=== PATIENT | male | born 1995 | race Caucasian/White ===

== ENCOUNTER 2017-03-19 09:07 | Emergency (ER) | payer SELFPAY ==
[2017-03-19] MEDS ORDERED: Ondansetron 4 MG/2 ML SDV IVPUSH ONE (09:23)
[2017-03-19] MEDS ORDERED: Ketorolac 30 MG/ML SDV IVPUSH ONE (09:23)
[2017-03-19] MEDS ORDERED: Sodium Chloride 0.9% 1,000 ML IV ONE (09:23)
--- NOTE | 2017-03-19 09:24 | EDM.PDOC ---
ED HPI GENERAL MEDICAL PROBLEM - General Chief Complaint: Abdominal Pain Stated Complaint: ABDOMINAL PAIN Time Seen by Provider: 03/19/17 09:24 Source of Information: Reports: Patient - History of Present Illness INITIAL COMMENTS - FREE TEXT/NARRATIVE: HISTORY AND PHYSICAL: History of present illness: [Patient presents with abdominal pain 2 out of 10 in the epigastric area as well as left lower quadrant, he awoke for work at 6 AM and has had pain since his last bowel movement was 24 hours ago normal formed stool per patient no diarrhea or constipation. Patient did vomit twice since awakening no fever chills sweats chest pain shortness breath headache dizziness or palpitation no bowel or urine symptoms Diagnosed with gastric ulcer several years ago ] Review of systems: As per history of present illness and below otherwise all systems reviewed and negative. Past medical history: As per history of present illness and as reviewed below otherwise noncontributory. Surgical history: As per history of present illness and as reviewed below otherwise noncontributory. Social history: No reported history of drug or alcohol abuse. Family history: As per history of present illness and as reviewed below otherwise noncontributory. Physical exam: HEENT: Atraumatic, normocephalic, pupils reactive, negative for conjunctival pallor or scleral icterus, mucous membranes moist, throat clear, neck supple, nontender, trachea midline. Lungs: Clear to auscultation, breath sounds equal bilaterally, chest nontender. Heart: S1S2, regular, negative for clicks, rubs, or JVD. Abdomen: Soft, nondistended, nontender in right lower or upper quadrant left lower quadrant mildly tender with deep palpation as well as and epigastrium. Negative for masses or hepatosplenomegaly. Negative for costovertebral tenderness. Pelvis: Stable nontender. Genitourinary: Deferred. Rectal: Deferred. Extremities: Atraumatic, negative for cords or calf pain. Neurovascular unremarkable. Neuro: Awake, alert, oriented. Cranial nerves II through XII unremarkable. Cerebellum unremarkable. Motor and sensory unremarkable throughout. Exam nonfocal. Diagnostics: []Lab as below Abdomen flat and upright nonobstructive pattern moderate amount of stool Guaiac-negative Therapeutics: []1 L normal saline bolus Zofran 8 mg IV Toradol 30 mg IV Protonix 80 mg IV Tramadol 50 mg by mouth 3 times a day when necessary #30 Reglan MiraLAX Otherwise clear liquids 24 hours Impression: []Abdominal pain Guaiac-negative Moderate stool Definitive disposition and diagnosis as appropriate pending reevaluation and review of above. Abdominal Pain Score (Numeric/FACES): 7 - Related Data Allergies Allergy/AdvReac Type Severity Reaction Status Date / Time No Known Allergies Allergy Verified 03/19/17 09:15 Home Meds: Home Meds . [No Known Home Meds] 03/19/17 [History] Past Medical History - Past Health History Medical/Surgical History: Denies Medical/Surgical History Social & Family History - Tobacco Use Smoking Status *Q: Current Every Day Smoker Years of Tobacco use: 10 Packs/Tins Daily: 0.5 ED ROS GENERAL - Review of Systems Review Of Systems: ROS reveals no pertinent complaints other than HPI. ED EXAM, GENERAL - Physical Exam Exam: See Below Course - Vital Signs Last Recorded V/S: Last Vital Signs Temp 36.2 C 03/19/17 09:15 Pulse 98 03/19/17 09:15 Resp 18 03/19/17 09:15 BP 124/64 03/19/17 09:15 Pulse Ox 97 03/19/17 09:15 - Orders/Labs/Meds Orders: Active Orders 24 hr Category Date Time Status Abdomen 2V AP Flat Upright [CR] Stat Exams 03/19/17 10:02 Ordered OCCULT BLOOD DIAGNOSTIC [OP] Stat Lab 03/19/17 10:50 Ordered Labs: Laboratory Tests 03/19/17 03/19/17 03/19/17 Range/Units 09:20 09:20 09:24 WBC 7.51 (4.0-11.0) K/uL RBC 5.35 (4.50-5.90) M/uL Hgb 16.4 (13.0-17.0) g/dL Hct 47.3 (38.0-50.0) % MCV 88.4 (80.0-98.0) fL MCH 30.7 (27.0-32.0) pg MCHC 34.7 (31.0-37.0) g/dL RDW Std Deviation 42.5 (28.0-62.0) fl RDW Coeff of Susan 13 (11.0-15.0) % Plt Count 264 (150-400) K/uL MPV 10.40 (7.40-12.00) fL Neut % (Auto) 51.2 (48.0-80.0) % Lymph % (Auto) 40.3 H (16.0-40.0) % [place] % (Auto) 5.9 (0.0-15.0) % Eos % (Auto) 2.3 (0.0-7.0) % Baso % (Auto) 0.3 (0.0-1.5) % Neut # (Auto) 3.9 (1.4-5.7) K/uL Lymph # (Auto) 3.0 H (0.6-2.4) K/uL [place] # (Auto) 0.4 (0.0-0.8) K/uL Eos # (Auto) 0.2 (0.0-0.7) K/uL Baso # (Auto) 0.0 (0.0-0.1) K/uL Nucleated RBC % 0.0 /100WBC Nucleated RBCs # 0 K/uL Sodium 139 (136-146) mmol/L Potassium 3.9 (3.5-5.1) mmol/L Chloride 104 (98-110) mmol/L Carbon Dioxide 25 (21-31) mmol/L BUN 16 (6.0-23.0) mg/dL Creatinine 0.9 (0.6-1.5) mg/dL Est Cr Clr Drug Dosing 119.35 mL/min Estimated GFR (MDRD) > 60.0 ml/min Glucose 101 (60-110) mg/dL Calcium 9.7 (8.8-10.8) mg/dL Total Bilirubin 0.6 (0.1-1.5) mg/dL AST 23 (5-40) IU/L ALT 22 (8-54) IU/L Alkaline Phosphatase 92 (40-150) Total Protein 7.7 (6.0-8.0) g/dL Albumin 4.7 (3.5-5.0) g/dL Globulin 3.0 (2.0-3.5) g/dL Albumin/Globulin Ratio 1.6 (1.3-2.8) Amylase 46 (10-90) U/L Lipase 14 (7-80) U/L Urine Color YELLOW Urine Appearance CLEAR Urine pH 7.0 (5.0-8.0) Ur Specific [place] 1.015 (1.001-1.035) Urine Protein NEGATIVE (NEGATIVE) mg/dL Urine Glucose (UA) NEGATIVE (NEGATIVE) mg/dL Urine Ketones NEGATIVE (NEGATIVE) mg/dL Urine Occult Blood NEGATIVE (NEGATIVE) Urine Nitrite NEGATIVE (NEGATIVE) Urine Bilirubin NEGATIVE (NEGATIVE) Urine Urobilinogen 0.2 (<2.0) EU/dL Ur Leukocyte Esterase NEGATIVE (NEGATIVE) Urine RBC 0-1 (0-2/HPF) Urine WBC 0-1 (0-5/HPF) Ur Epithelial Cells RARE (NONE-FEW) Urine Bacteria RARE (NEGATIVE) Meds: Medications Discontinued Medications Generic Name Dose Route Start Last Admin Trade Name Freq PRN Reason Stop Dose Admin Sodium Chloride 1,000 mls @ 999 mls/hr 03/19/17 09:23 03/19/17 09:47 Normal Saline IV 03/19/17 10:23 999 mls/hr STAT ONE Administration Ketorolac Tromethamine 30 mg 03/19/17 09:23 03/19/17 09:47 Toradol IVPUSH 03/19/17 09:24 30 mg ONETIME ONE Administration Ondansetron HCl 8 mg 03/19/17 09:23 03/19/17 09:47 Zofran IVPUSH 03/19/17 09:24 8 mg ONETIME ONE Administration Pantoprazole Sodium 80 mg 03/19/17 10:00 03/19/17 10:21 Protonix Iv IVPUSH 03/19/17 10:01 80 mg .BOLUS ONE Administration Departure - Departure Time of Disposition: 10:56 Disposition: Home, Self-Care 01 Condition: Good Clinical Impression: Gastroenteritis, Abdominal pain - Discharge Information Referrals: PCP,None [Primary Care Provider] - Forms: ED Department Discharge Additional Instructions: Medication as prescribed Recommend MiraLAX 1 packet daily until bowel movement Return if symptoms persist or worsen or new concerning symptoms develop, due to the early nature of presentation and symptoms other diagnoses could develop with time so strongly encouraged to return if symptoms persist or worsen Recommend clear liquids outside of the MiraLAX for 24 hours with no solid food Follow-up with primary care in 2 weeks sooner as needed [facility] [address] [place] [id number] The following information is given to patients seen in the emergency department who are being discharged to home. This information is to outline your options for follow-up care. We provide all patients seen in our emergency department with a follow-up referral. The need for follow-up, as well as the timing and circumstances, are variable depending upon the specifics of your emergency department visit. If you don't have a primary care physician on staff, we will provide you with a referral. We always advise you to contact your personal physician following an emergency department visit to inform them of the circumstance of the visit and for follow-up with them and/or the need for any referrals to a consulting specialist. The emergency department will also refer you to a specialist when appropriate. This referral assures that you have the opportunity for follow-up care with a specialist. All of these measure are taken in an effort to provide you with optimal care, which includes your follow-up. Under all circumstances we always encourage you to contact your private physician who remains a resource for coordinating your care. When calling for follow-up care, please make the office aware that this follow-up is from your recent emergency room visit. If for any reason you are refused follow-up, please contact the [facility] emergency department at and asked to speak to the emergency department charge nurse. - My Orders Last 24 Hours: My Active Orders 03/19/17 10:02 Abdomen 2V AP Flat Upright [CR] Stat 03/19/17 10:50 OCCULT BLOOD DIAGNOSTIC [OP] Stat - Assessment/Plan Last 24 Hours: My Active Orders 03/19/17 10:02 Abdomen 2V AP Flat Upright [CR] Stat 03/19/17 10:50 OCCULT BLOOD DIAGNOSTIC [OP] Stat
[2017-03-19 09:55] LABS: CHLORIDE,CL 104 mmol/L (98-110); SODIUM,NA 139 mmol/L (136-146)
[2017-03-19] MEDS ORDERED: Pantoprazole 40 MG Vial IVPUSH ONE (10:00)
--- NOTE | 2017-03-19 11:51 | CR ---
EXAMINATION: Abdomen HISTORY: Pain COMPARISON: None TECHNIQUE: AP and upright views FINDINGS: There is a small amount of stool and gas throughout the colon and rectum without evidence o f a small bowel obstruction. No organomegaly. No abnormal calcifications. No free air under the diaph ragm. Visualized osseous structures appear unremarkable. IMPRESSION: Grossly unremarkable abdominal radiographs.
== END 2017-03-19 11:14 | disposition home or self-care (01) ==
LOC: MW.ED 09:07
DX: K52.9 Noninfective gastroenteritis and colitis, unspecified (principal); F17.210 Nicotine dependence, cigarettes, uncomplicated
CPT/HCPCS: 36415; 74020; 80053; 81001; 82150; 82272; 83690; 85025; 96361; 96374; 96375; 99284; C9113; J1885; J2405; J7040

== ENCOUNTER 2017-03-20 10:01 | Emergency (ER) | payer SELFPAY ==
[2017-03-20] MEDS ORDERED: Sodium Chloride 0.9% 1,000 ML IV ONE (10:22)
[2017-03-20] MEDS ORDERED: Ondansetron 4 MG/2 ML SDV IVPUSH ONE (10:22)
[2017-03-20] MEDS ORDERED: Ketorolac 30 MG/ML SDV IVPUSH ONE (10:22)
--- NOTE | 2017-03-20 10:39 | EDM.PDOC ---
ED HPI GENERAL MEDICAL PROBLEM - General Chief Complaint: Abdominal Pain Stated Complaint: ABDOMINAL PAIN Time Seen by Provider: 03/20/17 10:24 Source of Information: Reports: Patient History Limitations: Reports: No Limitations - History of Present Illness INITIAL COMMENTS - FREE TEXT/NARRATIVE: History of present illness: [22-year-old male comes in complaining of abdominal pain. Patient was seen yesterday with a diagnosis of gastritis patient did have a volume of stool in his gut and now he is indicating that he has diarrhea.] Review of systems: As per history of present illness and below otherwise all systems reviewed and negative. Past medical history: As per history of present illness and as reviewed below otherwise noncontributory. Surgical history: As per history of present illness and as reviewed below otherwise noncontributory. Social history: No reported history of drug or alcohol abuse. Family history: As per history of present illness and as reviewed below otherwise noncontributory. Physical exam: HEENT: Atraumatic, normocephalic, pupils reactive, negative for conjunctival pallor or scleral icterus, mucous membranes moist, throat clear, neck supple, nontender, trachea midline. Lungs: Clear to auscultation, breath sounds equal bilaterally, chest nontender. Heart: S1S2, regular, negative for clicks, rubs, or JVD. Abdomen: Soft, nondistended, diffuse tenderness to left lower quadrant Negative for masses or hepatosplenomegaly. Negative for costovertebral tenderness. Pelvis: Stable nontender. Genitourinary: Deferred. Rectal: Deferred. Extremities: Atraumatic, negative for cords or calf pain. Neurovascular unremarkable. Neuro: Awake, alert, oriented. Cranial nerves II through XII unremarkable. Cerebellum unremarkable. Motor and sensory unremarkable throughout. Exam nonfocal. Global assessment is benign save the subjective complaint as noted in history of present illness Diagnostics: [CBC, CMP, amylase, lipase] Therapeutics: [Liter of fluids,] Impression: [Gastritis] Plan: [Continue meds prescribed yesterday] Definitive disposition and diagnosis as appropriate pending reevaluation and review of above. Left Upper Abdominal Pain Score (Numeric/FACES): 7 - Related Data Allergies Allergy/AdvReac Type Severity Reaction Status Date / Time No Known Allergies Allergy Verified 03/20/17 10:11 Home Meds: Home Meds Ondansetron [Zofran] 4 mg PO DAILY 03/20/17 [History] traMADol [Ultram] 50 mg PO DAILY 03/20/17 [History] Past Medical History - Past Health History Medical/Surgical History: Denies Medical/Surgical History - Infectious Disease History Infectious Disease History: Reports: Chicken Pox Social & Family History - Family History Family Medical History: Noncontributory - Tobacco Use Smoking Status *Q: Current Every Day Smoker Years of Tobacco use: 11 Packs/Tins Daily: 1.5 - Caffeine Use Caffeine Use: Reports: Coffee, Soda, Tea - Recreational Drug Use Recreational Drug Use: No ED ROS GENERAL - Review of Systems Review Of Systems: See Below (History of present illness) ED EXAM, GENERAL - Physical Exam Exam: See Below (See history of present illness) Course - Vital Signs Last Recorded V/S: Last Vital Signs Temp 36.6 C 03/20/17 10:12 Pulse 80 03/20/17 10:12 Resp 18 03/20/17 10:12 BP 130/80 03/20/17 10:12 Pulse Ox 99 03/20/17 10:12 - Orders/Labs/Meds Orders: Active Orders 24 hr Category Date Time Status Sodium Chloride 0.9% [Normal Saline] 1,000 ml Med 03/20/17 10:22 Ordered IV STAT Medication Orders Sodium Chloride (Normal Saline) 1,000 mls @ 999 mls/hr IV STAT ONE Stop: 03/20/17 11:22 Ketorolac Tromethamine (Toradol) 30 mg IVPUSH ONETIME ONE Stop: 03/20/17 10:23 Ondansetron HCl (Zofran) 4 mg IVPUSH ONETIME ONE Stop: 03/20/17 10:23 Meds: Medications Generic Name Dose Route Start Last Admin Trade Name Freq PRN Reason Stop Dose Admin Sodium Chloride 1,000 mls @ 999 mls/hr 03/20/17 10:22 Normal Saline IV 03/20/17 11:22 STAT ONE Ketorolac Tromethamine 30 mg 03/20/17 10:22 Toradol IVPUSH 03/20/17 10:23 ONETIME ONE Ondansetron HCl 4 mg 03/20/17 10:22 Zofran IVPUSH 03/20/17 10:23 ONETIME ONE Departure - Departure Time of Disposition: 11:01 Disposition: Home, Self-Care 01 Condition: Good Clinical Impression: Abdominal pain - Discharge Information Referrals: PCP,None [Primary Care Provider] - Additional Instructions: The following information is given to patients seen in the emergency department who are being discharged to home. This information is to outline your options for follow-up care. We provide all patients seen in our emergency department with a follow-up referral. The need for follow-up, as well as the timing and circumstances, are variable depending upon the specifics of your emergency department visit. If you don't have a primary care physician on staff, we will provide you with a referral. We always advise you to contact your personal physician following an emergency department visit to inform them of the circumstance of the visit and for follow-up with them and/or the need for any referrals to a consulting specialist. The emergency department will also refer you to a specialist when appropriate. This referral assures that you have the opportunity for follow-up care with a specialist. All of these measure are taken in an effort to provide you with optimal care, which includes your follow-up. Under all circumstances we always encourage you to contact your private physician who remains a resource for coordinating your care. When calling for follow-up care, please make the office aware that this follow-up is from your recent emergency room visit. If for any reason you are refused follow-up, please contact the [facility] Emergency Department at and asked to speak to the emergency department charge nurse. Take medication as directed Follow-up with PCP 1-2 days Return to ED as needed as discussed - My Orders Last 24 Hours: My Active Orders 03/20/17 10:22 Sodium Chloride 0.9% [Normal Saline] 1,000 ml IV STAT - Assessment/Plan Last 24 Hours: My Active Orders 03/20/17 10:22 Sodium Chloride 0.9% [Normal Saline] 1,000 ml IV STAT
[2017-03-20 10:59] LABS: CHLORIDE,CL 108 mmol/L (98-110); SODIUM,NA 141 mmol/L (136-146)
== END 2017-03-20 11:20 | disposition home or self-care (01) ==
LOC: MW.ED 10:01
DX: K29.70 Gastritis, unspecified, without bleeding (principal); F17.210 Nicotine dependence, cigarettes, uncomplicated; Z79.899 Other long term (current) drug therapy
CPT/HCPCS: 36415; 80053; 82150; 83690; 85025; 96361; 96374; 96375; 99284; J1885; J2405; J7040

== ENCOUNTER 2017-03-21 13:32 | Emergency (ER) | payer SELFPAY ==
[2017-03-21] MEDS ORDERED: Ketorolac 30 MG/ML SDV IVPUSH ONE (13:58)
[2017-03-21] MEDS ORDERED: Ondansetron 4 MG/2 ML SDV IVPUSH ONE (13:58)
[2017-03-21] MEDS ORDERED: Sodium Chloride 0.9% 1,000 ML IV ONE ×2 (13:58→15:47)
--- NOTE | 2017-03-21 14:07 | EDM.PDOC ---
ED HPI GENERAL MEDICAL PROBLEM - General Chief Complaint: Fever Stated Complaint: FEVER/BODYACHES Time Seen by Provider: 03/21/17 13:33 Source of Information: Reports: Patient History Limitations: Reports: No Limitations - History of Present Illness INITIAL COMMENTS - FREE TEXT/NARRATIVE: HISTORY AND PHYSICAL: History of present illness: Patient is a 22-year-old male who presents to the emergency room today with complaints of abdominal pain, headache, nausea, vomiting, diarrhea, body aches and fever. He was seen in the emergency room on 03/19/2017 for abdominal pain, at that time he was diagnosed with gastroenteritis. Reports that the abdominal pain did not resolve and proceeded to be evaluated in the emergency room again on 03/20/2017 he was prescribed Zofran and tramadol. Woke up today with the additional symptoms. States last night he had a fever of 102F. Has not taken any [id number] products. Denies any chest pain, shortness of breath, blood in the stool or emesis, or recent injuries. Did not have a flu vaccine for the [id number] year Review of systems: As per history of present illness and below otherwise all systems reviewed and negative. Past medical history: As per history of present illness and as reviewed below otherwise noncontributory. Surgical history: As per history of present illness and as reviewed below otherwise noncontributory. Social history: No reported history of drug or alcohol abuse. Family history: As per history of present illness and as reviewed below otherwise noncontributory. Physical exam: Gen.: Well-developed and well-nourished 22-year-old male. Able to speak in full sentences. Appears nontoxic. Alert and oriented HEENT: Atraumatic, normocephalic, pupils reactive, negative for conjunctival pallor or scleral icterus, mucous membranes moist, throat clear, neck supple, nontender, trachea midline. Lungs: Clear to auscultation, breath sounds equal bilaterally, chest nontender. Heart: S1S2, regular, negative for clicks, rubs, or JVD. Abdomen: Soft, nondistended, nontender in all 4 quadrants . Negative for masses or hepatosplenomegaly. Negative for costovertebral tenderness. Pelvis: Stable nontender. Genitourinary: Deferred. Rectal: Deferred. Extremities: Atraumatic, moves all extremities per self. Neurovascular unremarkable. Skin: Intact, warm, dry. No overt lesions or masses. Neuro: Awake, alert, oriented. Cranial nerves II through XII unremarkable. Cerebellum unremarkable. Motor and sensory unremarkable throughout. Exam nonfocal. Patient received his IV fluids, Zofran, Toradol and morphine -reports that he feels "somewhat better". He has yet to have a loose stool since being in the emergency room. He reports he would like to give a stool sample as he is concerned that he has a "parasite". I will give a second liter of fluids. The other labs are reviewed with the patient along with the CT scan. At this time patient is requesting to go home prior to giving us a stool sample. An outpatient lab order was given to the patient for stool studies, collection kit as given to patient with education. We discussed following up with his primary care provider in the next 1-2 days. He voices understanding and is agreeable to plan of care. Denies any further questions at this time. Diagnostics: CBC, CMP, amylase, lipase, H. pylori, stool study, influenza, mono-spot Therapeutics: IV fluid, Zofran, Toradol, morphine Impression: Gastroenteritis Plan: 1. Your labs and CT scan were reviewed with you, they were normal. Her symptoms are likely viral. Please continue to rest, eat a well-balanced diet, and plenty of fluids to prevent dehydration. If you continue to have these symptoms please follow-up with your primary care provider within the next 1-2 days as we discussed. An order for a stool study was given to you, if you to collect a stool he may bring it back to the admissions desk in the coin machine collector been that we give you. If there is anything requiring antibiotics your receive a phone call. 2. Have already been prescribed Zofran and tramadol at your previous visits, you may use these as desired. 3. Return to the emergency room as needed and as discussed. Definitive disposition and diagnosis as appropriate pending reevaluation and review of above. 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 (see below) (Tramadol) lower back/head Pain Score (Numeric/FACES): 7 - Related Data Allergies Allergy/AdvReac Type Severity Reaction Status Date / Time No Known Allergies Allergy Verified 03/21/17 13:46 Home Meds: Home Meds Ondansetron [Zofran] 4 mg PO Q6H PRN 03/20/17 [History] traMADol [Ultram] 50 mg PO Q6H PRN 03/20/17 [History] Past Medical History - Past Health History Medical/Surgical History: Denies Medical/Surgical History Musculoskeletal History: Reports: None - Infectious Disease History Infectious Disease History: Reports: Chicken Pox - Past Surgical History Musculoskeletal Surgical History: Reports: Other (See Below) Other Musculoskeletal Surgeries/Procedures:: bilateral knee surgery for osgoodslaughters disease Social & Family History - Family History Family Medical History: Noncontributory - Tobacco Use Smoking Status *Q: Current Every Day Smoker Years of Tobacco use: 10 Packs/Tins Daily: 1 Used Tobacco, but Quit: No Second Hand Smoke Exposure: Yes - Caffeine Use Caffeine Use: Reports: Coffee, Energy Drinks, Soda Caffeine Use Comment: 2 cups per day - Recreational Drug Use Recreational Drug Use: No ED ROS GENERAL - Review of Systems Review Of Systems: ROS reveals no pertinent complaints other than HPI. ED EXAM, GENERAL - Physical Exam Exam: See Below (See dictation) Course - Vital Signs Last Recorded V/S: Last Vital Signs Temp 37.6 C 03/21/17 13:48 Pulse 136 H 03/21/17 13:48 Resp 20 03/21/17 13:48 BP 120/73 03/21/17 13:48 Pulse Ox 95 03/21/17 13:48 - Orders/Labs/Meds Orders: Active Orders 24 hr Category Date Time Status CULTURE STOOL + CAMPY+SHIGATOX [RM] Stat Lab 03/21/17 14:07 Uncollected CULTURE STREP A CONFIRMATION [RM] Stat Lab 03/21/17 15:17 Results STREP SCRN A RAPID W CULT CONF [RM] Stat Lab 03/21/17 15:17 Results Sodium Chloride 0.9% [Normal Saline] 1,000 ml Med 03/21/17 15:47 Active IV STAT Medication Orders Sodium Chloride (Normal Saline) 1,000 mls @ 999 mls/hr IV STAT ONE Stop: 03/21/17 16:47 Last Admin: 03/21/17 16:00 Dose: 999 mls/hr Labs: Laboratory Tests 1103/21/17 03/21/17 Range/Units 14:21 14:21 14:21 WBC 13.38 H (4.0-11.0) K/uL RBC 5.45 (4.50-5.90) M/uL Hgb 16.8 (13.0-17.0) g/dL Hct 47.1 (38.0-50.0) % MCV 86.4 (80.0-98.0) fL MCH 30.8 (27.0-32.0) pg MCHC 35.7 (31.0-37.0) g/dL RDW Std Deviation 40.2 (28.0-62.0) fl RDW Coeff of Susan 13 (11.0-15.0) % Plt Count 247 (150-400) K/uL MPV 11.00 (7.40-12.00) fL Neut % (Auto) 83.9 H (48.0-80.0) % Lymph % (Auto) 8.5 L (16.0-40.0) % [place] % (Auto) 7.3 (0.0-15.0) % Eos % (Auto) 0.2 (0.0-7.0) % Baso % (Auto) 0.1 (0.0-1.5) % Neut # (Auto) 11.2 H (1.4-5.7) K/uL Lymph # (Auto) 1.1 (0.6-2.4) K/uL [place] # (Auto) 1.0 H (0.0-0.8) K/uL Eos # (Auto) 0.0 (0.0-0.7) K/uL Baso # (Auto) 0.0 (0.0-0.1) K/uL Nucleated RBC % 0.0 /100WBC Nucleated RBCs # 0 K/uL Sodium 137 (136-146) mmol/L Potassium 3.6 (3.5-5.1) mmol/L Chloride 103 (98-110) mmol/L Carbon Dioxide 22 (21-31) mmol/L BUN 11 (6.0-23.0) mg/dL Creatinine 0.9 (0.6-1.5) mg/dL Est Cr Clr Drug Dosing 119.35 mL/min Estimated GFR (MDRD) > 60.0 ml/min Glucose 85 (60-110) mg/dL Calcium 9.7 (8.8-10.8) mg/dL Total Bilirubin 0.6 (0.1-1.5) mg/dL AST 21 (5-40) IU/L ALT 18 (8-54) IU/L Alkaline Phosphatase 108 (40-150) Total Protein 7.9 (6.0-8.0) g/dL Albumin 4.8 (3.5-5.0) g/dL Globulin 3.1 (2.0-3.5) g/dL Albumin/Globulin Ratio 1.5 (1.3-2.8) Amylase 40 (10-90) U/L Lipase 12 (7-80) U/L H. pylori IgG Antibody NEGATIVE (NEG) Monoscreen NEGATIVE (NEG) Meds: Medications Generic Name Dose Route Start Last Admin Trade Name Freq PRN Reason Stop Dose Admin Sodium Chloride 1,000 mls @ 999 mls/hr 03/21/17 15:47 03/21/17 16:00 Normal Saline IV 03/21/17 16:47 999 mls/hr STAT ONE Administration Discontinued Medications Generic Name Dose Route Start Last Admin Trade Name Freq PRN Reason Stop Dose Admin Sodium Chloride 1,000 mls @ 999 mls/hr 03/21/17 13:58 03/21/17 14:32 Normal Saline IV 03/21/17 14:58 999 mls/hr STAT ONE Administration Iopamidol 100 ml 03/21/17 15:24 03/21/17 15:24 Isovue Multipack-370 (76%) IVPUSH 03/21/17 15:25 100 ml ONETIME STA Administration Ketorolac Tromethamine 30 mg 03/21/17 13:58 03/21/17 14:32 Toradol IVPUSH 03/21/17 13:59 30 mg ONETIME ONE Administration Morphine Sulfate 2 mg 03/21/17 15:20 03/21/17 15:26 Morphine IVPUSH 03/21/17 15:21 2 mg ONETIME ONE Administration Ondansetron HCl 4 mg 03/21/17 13:58 03/21/17 14:32 Zofran IVPUSH 03/21/17 13:59 4 mg ONETIME ONE Administration Departure - Departure Time of Disposition: 16:15 Disposition: Home, Self-Care 01 Clinical Impression: Gastroenteritis - Discharge Information Referrals: PCP,None [Primary Care Provider] - Forms: ED Department Discharge Additional Instructions: My general discharge The following information is given to patients seen in the emergency department who are being discharged to home. This information is to outline your options for follow-up care. We provide all patients seen in our emergency department with a follow-up referral. The need for follow-up, as well as the timing and circumstances, are variable depending upon the specifics of your emergency department visit. If you don't have a primary care physician on staff, we will provide you with a referral. We always advise you to contact your personal physician following an emergency department visit to inform them of the circumstance of the visit and for follow-up with them and/or the need for any referrals to a consulting specialist. The emergency department will also refer you to a specialist when appropriate. This referral assures that you have the opportunity for follow-up care with a specialist. All of these measure are taken in an effort to provide you with optimal care, which includes your follow-up. Under all circumstances we always encourage you to contact your private physician who remains a resource for coordinating your care. When calling for follow-up care, please make the office aware that this follow-up is from your recent emergency room visit. If for any reason you are refused follow-up, please contact the [facility] Emergency Department at and asked to speak to the emergency department charge nurse. [facility] [address] [place] [phone] 1. Your labs and CT scan were reviewed with you, they were normal. Her symptoms are likely viral. Please continue to rest, eat a well-balanced diet, and plenty of fluids to prevent dehydration. If you continue to have these symptoms please follow-up with your primary care provider within the next 1-2 days as we discussed. An order for a stool study was given to you, if you to collect a stool he may bring it back to the admissions desk in the coin machine collector been that we give you. If there is anything requiring antibiotics your receive a phone call 2. Have already been prescribed Zofran and tramadol at your previous visits, you may use these as desired. 3. Return to the emergency room as needed and as discussed. - My Orders Last 24 Hours: My Active Orders 03/21/17 14:07 CULTURE STOOL + CAMPY+SHIGATOX [RM] Stat 03/21/17 15:17 CULTURE STREP A CONFIRMATION [RM] Stat STREP SCRN A RAPID W CULT CONF [RM] Stat 03/21/17 15:47 Sodium Chloride 0.9% [Normal Saline] 1,000 ml IV STAT - Assessment/Plan Last 24 Hours: My Active Orders 03/21/17 14:07 CULTURE STOOL + CAMPY+SHIGATOX [RM] Stat 03/21/17 15:17 CULTURE STREP A CONFIRMATION [RM] Stat STREP SCRN A RAPID W CULT CONF [RM] Stat 03/21/17 15:47 Sodium Chloride 0.9% [Normal Saline] 1,000 ml IV STAT
[2017-03-21 15:02] LABS: CHLORIDE,CL 103 mmol/L (98-110); SODIUM,NA 137 mmol/L (136-146)
[2017-03-21] MEDS ORDERED: Morphine 2 MG/ML Syringe IVPUSH ONE (15:20)
[2017-03-21] MEDS ORDERED: Iopamidol 755 MG/ML 500 ML Multipack Bottle IVPUSH STA (15:24)
--- NOTE | 2017-03-21 15:37 | CT ---
CT of the abdomen and pelvis with contrast. HISTORY: Pain TECHNIQUE: Axial CT images were obtained of the abdomen and pelvis following administration of 100 mL of Isovue-370 in the left antecubital fossa without complication. Coronal and sagittal reconstructio ns obtained. FINDINGS: The lung bases are clear, no pleural effusion. The liver, spleen, adrenal glands, and pancreas appear normal. The gallbladder is normal. There is no bulky retroperitoneal lymphadenopathy or abdominal as cites. The kidneys enhance and function symmetrically without evidence of obstructive uropathy. The large and small bowel are normal in caliber without evidence of obstruction. No focal pericolonic inflammation or stranding. The appendix appears normal. No bulky pelvic lymphadenopathy or free pelv ic fluid. The urinary bladder is normal. No suspicious osseous abnormalities identified. IMPRESSION: 1. No acute findings identified within the abdomen or pelvis.
== END 2017-03-21 16:33 | disposition home or self-care (01) ==
LOC: MW.ED 13:32
DX: K52.9 Noninfective gastroenteritis and colitis, unspecified (principal); F17.210 Nicotine dependence, cigarettes, uncomplicated
CPT/HCPCS: 36415; 74177; 80053; 82150; 83690; 85025; 86308; 86677; 87081; 87804; 87880; 96361; 96374; 96375; 99283; J1885; J2270; J2405; J7040; Q9967; 99284

== ENCOUNTER 2017-06-28 14:36 | Emergency (ER) | payer BC ==
[2017-06-28] MEDS ORDERED: Famotidine 20 MG/2 ML SDV IVPUSH ONE (15:16)
[2017-06-28] MEDS ORDERED: Acetaminophen 325 MG Tab PO ONE (15:16)
[2017-06-28] MEDS ORDERED: Ondansetron 4 MG/2 ML SDV IVPUSH ONE (15:16)
--- NOTE | 2017-06-28 15:24 | EDM.PDOC ---
ED HPI GENERAL MEDICAL PROBLEM - General Chief Complaint: Gastrointestinal Problem Stated Complaint: POSSIBLE FOOD POISONING Time Seen by Provider: 06/28/17 15:17 Source of Information: Reports: Patient History Limitations: Reports: No Limitations - History of Present Illness INITIAL COMMENTS - FREE TEXT/NARRATIVE: HISTORY AND PHYSICAL: []Patient became ill last night nausea vomiting 6 History of Present Illness: []Patient states he had supper at [facility] and after midnight rest of the family started waking up ill and vomiting Review of Systems: As per history of present illness and below otherwise all systems reviewed and negative. Past medical history: As per history of present illness and as reviewed below otherwise noncontributory. Surgical history: As per history of present illness and as reviewed below otherwise noncontributory. Social history: No reported history of drug or alcohol abuse. Family history: As per history of present illness and as reviewed below otherwise noncontributory. Physical exam: Alert oriented young man who answers questions appropriately skin is hot moist. HEENT: Atraumatic, normocehpalic, pupils reactive, negative for conjunctival pallor or scleral icterus, mucous membranes moist, throat clear, neck supple, nontender, trachea midline. Lungs: Clear to auscultation, breath sounds equal bilaterally, chest non tender. Heart: S1S2, regular, negative for clicks, rubs, or JVD. Abdomen: Soft, nondistended, nontender. Negative for masses or hepatossplenmegaly. Negative for costovertebral tenderness. Pelvis: Stable nontender. Genitourinary: Deferred. Rectal: Deferred Extremities: Atraumatic, negative for cords or calf pain. Neurovascular unremarkable. Neuro: Awake, alert, oriented. Cranial nerves II through XII unremarkable. Cerebellum unremarkable. Motor and sensory unremarkable throughout. Exam nonfocal. Discussed diagnosis with the mother and son verbalized understanding of these recommendations Diagnostics: []CBC CMP influenza Therapeutics: []Tylenol IV normal saline Zofran Impression: []Gastroenteritis Plan: []Discharged home Rest for the next 2 days Zofran ODT up to 3 times daily when necessary nausea Bactrim DS 1 twice a day 5 days Definitive disposition and diagnosis as appropriate pending reevaluation and review of above. Onset: Today, Sudden Duration: Hour(s):, Getting Worse Location: Reports: Head, Abdomen, Generalized Quality: Reports: Ache Severity: Moderate Improves with: Reports: None Worsens with: Reports: None Generalized Pain Score (Numeric/FACES): 7 - Related Data Allergies Allergy/AdvReac Type Severity Reaction Status Date / Time No Known Allergies Allergy Verified 03/21/17 13:46 Home Meds: Home Meds Ondansetron [Zofran] 4 mg PO Q6H PRN 03/20/17 [History] traMADol [Ultram] 50 mg PO Q6H PRN 03/20/17 [History] Ondansetron [Zofran ODT] 4 mg PO Q6H PRN #12 tab.dis 06/28/17 [Rx] Sulfamethoxazole/Trimethoprim [Bactrim Ds Tablet] 1 each PO BID #10 tablet 06/28 [Rx] Past Medical History - Past Health History Medical/Surgical History: Denies Medical/Surgical History Musculoskeletal History: Reports: None - Infectious Disease History Infectious Disease History: Reports: Chicken Pox - Past Surgical History Musculoskeletal Surgical History: Reports: Other (See Below) Other Musculoskeletal Surgeries/Procedures:: bilateral knee surgery for osgoodslaughters disease Social & Family History - Family History Family Medical History: Noncontributory - Tobacco Use Smoking Status *Q: Current Every Day Smoker Years of Tobacco use: 10 Packs/Tins Daily: 1 Used Tobacco, but Quit: No Second Hand Smoke Exposure: Yes - Caffeine Use Caffeine Use: Reports: Coffee, Energy Drinks, Soda Caffeine Use Comment: 2 cups per day - Recreational Drug Use Recreational Drug Use: No ED ROS GENERAL - Review of Systems Review Of Systems: ROS reveals no pertinent complaints other than HPI. ED EXAM, GI/ABD - Physical Exam Exam: See Below (See dictation) Course - Vital Signs Last Recorded V/S: Last Vital Signs Temp 38.9 C H 06/28/17 15:13 Pulse 115 H 06/28/17 15:13 Resp 16 06/28/17 15:13 BP 134/79 06/28/17 15:13 Pulse Ox 97 06/28/17 15:13 - Orders/Labs/Meds Orders: Active Orders 24 hr Category Date Time Status Sodium Chloride 0.9% [Normal Saline] 500 ml Med 06/28/17 16:15 Active IV .BOLUS Sodium Chloride 0.9% [Normal Saline] 500 ml Med 06/28/17 15:30 Active IV STAT Medication Orders Sodium Chloride (Normal Saline) 500 mls @ 999 mls/hr IV STAT HOLDEN Last Admin: 06/28/17 16:31 Dose: 999 mls/hr Infusion: 06/28/17 16:00 Dose: 999 mls/hr Admin: 06/28/17 15:29 Dose: 999 mls/hr Sodium Chloride (Normal Saline) 500 mls @ 999 mls/hr IV .BOLUS HOLDEN Labs: Laboratory Tests 06/28/17 06/28/17 Range/Units 15:25 15:25 WBC 8.01 (4.0-11.0) K/uL RBC 5.22 (4.50-5.90) M/uL Hgb 15.9 (13.0-17.0) g/dL Hct 45.4 (38.0-50.0) % MCV 87.0 (80.0-98.0) fL MCH 30.5 (27.0-32.0) pg MCHC 35.0 (31.0-37.0) g/dL RDW Std Deviation 42.0 (28.0-62.0) fl RDW Coeff of Susan 13 (11.0-15.0) % Plt Count 212 (150-400) K/uL MPV 10.80 (7.40-12.00) fL Neut % (Auto) 84.7 H (48.0-80.0) % Lymph % (Auto) 7.7 L (16.0-40.0) % [place] % (Auto) 6.4 (0.0-15.0) % Eos % (Auto) 1.1 (0.0-7.0) % Baso % (Auto) 0.1 (0.0-1.5) % Neut # (Auto) 6.8 H (1.4-5.7) K/uL Lymph # (Auto) 0.6 (0.6-2.4) K/uL [place] # (Auto) 0.5 (0.0-0.8) K/uL Eos # (Auto) 0.1 (0.0-0.7) K/uL Baso # (Auto) 0.0 (0.0-0.1) K/uL Nucleated RBC % 0.0 /100WBC Nucleated RBCs # 0 K/uL Sodium 136 (136-146) mmol/L Potassium 4.0 (3.5-5.1) mmol/L Chloride 103 (98-110) mmol/L Carbon Dioxide 21 (21-31) mmol/L BUN 21 (6.0-23.0) mg/dL Creatinine 0.8 (0.6-1.5) mg/dL Est Cr Clr Drug Dosing 134.27 mL/min Estimated GFR (MDRD) > 60.0 ml/min Glucose 93 (60-110) mg/dL Calcium 9.1 (8.8-10.8) mg/dL Total Bilirubin 0.7 (0.1-1.5) mg/dL AST 19 (5-40) IU/L ALT 18 (8-54) IU/L Alkaline Phosphatase 93 (40-150) Total Protein 7.1 (6.0-8.0) g/dL Albumin 4.6 (3.5-5.0) g/dL Globulin 2.5 (2.0-3.5) g/dL Albumin/Globulin Ratio 1.8 (1.3-2.8) Meds: Medications Generic Name Dose Route Start Last Admin Trade Name Freq PRN Reason Stop Dose Admin Sodium Chloride 500 mls @ 999 mls/hr 06/28/17 15:30 06/28/17 16:31 Normal Saline IV 999 mls/hr STAT HOLDEN Administration Sodium Chloride 500 mls @ 999 mls/hr 06/28/17 16:15 Normal Saline IV .BOLUS HOLDEN Discontinued Medications Generic Name Dose Route Start Last Admin Trade Name Freq PRN Reason Stop Dose Admin Acetaminophen 650 mg 06/28/17 15:16 06/28/17 15:30 Tylenol PO 06/28/17 15:17 650 mg NOW ONE Administration Famotidine 20 mg 06/28/17 15:16 06/28/17 15:30 Pepcid IVPUSH 06/28/17 15:17 20 mg ONETIME ONE Administration Ketorolac Tromethamine 30 mg 06/28/17 16:05 06/28/17 16:31 Toradol IVPUSH 06/28/17 16:06 30 mg ONETIME ONE Administration Ketorolac Tromethamine 30 mg 06/28/17 16:09 06/28/17 16:33 Toradol IVPUSH 06/28/17 16:10 Not Given ONETIME ONE Ondansetron HCl 4 mg 06/28/17 15:16 06/28/17 15:30 Zofran IVPUSH 06/28/17 15:17 4 mg ONETIME ONE Administration Departure - Departure Time of Disposition: 16:57 Disposition: Home, Self-Care 01 Condition: Good Clinical Impression: Gastroenteritis - Discharge Information Prescriptions: Ondansetron [Zofran ODT] 4 mg PO Q6H PRN #12 tab.dis PRN Reason: Nausea/Vomiting Sulfamethoxazole/Trimethoprim [Bactrim Ds Tablet] 1 each PO BID #10 tablet Instructions: Abdominal Pain, Adult, [id number], Food Poisoning, [id number] , Viral Gastroenteritis, Adult, [id number] Referrals: PCP,None [Primary Care Provider] - Forms: ED Department Discharge Additional Instructions: The following information is given to patients seen in the emergency department who are being discharged to home. This information is to outline your options for follow-up care. We provide all patients seen in our emergency department with a follow-up referral. The need for follow-up, as well as the timing and circumstances, are variable depending upon the specifics of your emergency department visit. If you don't have a primary care physician on staff, we will provide you with a referral. We always advise you to contact your personal physician following an emergency department visit to inform them of the circumstance of the visit and for follow-up with them and/or the need for any referrals to a consulting specialist. The emergency department will also refer you to a specialist when appropriate. This referral assures that you have the opportunity for followup care with a specialist. All of these measure are taken in an effort to provide you with optimal care, which includes your followup. Under all circumstances we always encourage you to contact your private physician who remains a resource for coordinating your care. When calling for followup care, please make the office aware that this follow-up is from your recent emergency room visit. If for any reason you are refused follow-up, please contact the [facility] emergency department at and asked to speak to the emergency department charge nurse. Found to have gastroenteritis Zofran ODT 4 mg 1 every 6 hours as needed when necessary nausea vomiting #12 no refill Bactrim DS 1 twice a day 5 days Follow-up with your primary care provider next week if worsening over the weekend return for reevaluation Work note has been issued for 48 hours return to work 07/01/17 - My Orders Last 24 Hours: My Active Orders 06/28/17 15:30 Sodium Chloride 0.9% [Normal Saline] 500 ml IV STAT 06/28/17 16:15 Sodium Chloride 0.9% [Normal Saline] 500 ml IV .BOLUS - Assessment/Plan Last 24 Hours: My Active Orders 06/28/17 15:30 Sodium Chloride 0.9% [Normal Saline] 500 ml IV STAT 06/28/17 16:15 Sodium Chloride 0.9% [Normal Saline] 500 ml IV .BOLUS
[2017-06-28] MEDS: Sodium Chloride 0.9% 500 ML IV SCH ×2 (15:29→16:31)
[2017-06-28 15:52] LABS: CHLORIDE,CL 103 mmol/L (98-110); SODIUM,NA 136 mmol/L (136-146)
[2017-06-28] MEDS ORDERED: Ketorolac 30 MG/ML SDV IVPUSH ONE ×2 (16:05→16:09)
[2017-06-28] MEDS ORDERED: Sodium Chloride 0.9% 500 ML IV SCH (16:15)
== END 2017-06-28 17:16 | disposition home or self-care (01) ==
LOC: MW.ED 14:36
DX: K52.9 Noninfective gastroenteritis and colitis, unspecified (principal); F17.210 Nicotine dependence, cigarettes, uncomplicated
CPT/HCPCS: 36415; 80053; 85025; 87804; 96361; 96374; 96375; 99283; A9270; J1885; J2405; J7040; 99282

== ENCOUNTER 2017-09-01 19:09 | Emergency (ER) | payer BC ==
--- NOTE | 2017-09-01 20:50 | EDM.PDOC ---
ED HPI GENERAL MEDICAL PROBLEM - General Chief Complaint: Gastrointestinal Problem Stated Complaint: VOMITING/STOMACH PAIN Time Seen by Provider: 09/01/17 20:45 Source of Information: Reports: Patient History Limitations: Reports: No Limitations - History of Present Illness INITIAL COMMENTS - FREE TEXT/NARRATIVE: HISTORY AND PHYSICAL: []22-year-old male presenting with nausea vomiting for the last 24 hours History of Present Illness: []He has not had a fever Review of Systems: As per history of present illness and below otherwise all systems reviewed and negative. Past medical history: As per history of present illness and as reviewed below otherwise noncontributory. Surgical history: As per history of present illness and as reviewed below otherwise noncontributory. Social history: No reported history of drug or alcohol abuse. Family history: As per history of present illness and as reviewed below otherwise noncontributory. Physical exam: Oriented gentleman who is answering questions appropriately in full sentences without any shortness of breath HEENT: Atraumatic, normocehpalic, pupils reactive, negative for conjunctival pallor or scleral icterus, mucous membranes moist, throat clear, neck supple, nontender, trachea midline. Lungs: Clear to auscultation, breath sounds equal bilaterally, chest non tender. Heart: S1S2, regular, negative for clicks, rubs, or JVD. Abdomen: Soft, nondistended, nontender. Negative for masses or hepatossplenmegaly. Negative for costovertebral tenderness. Pelvis: Stable nontender. Genitourinary: Deferred. Rectal: Deferred Extremities: Atraumatic, negative for cords or calf pain. Neurovascular unremarkable. Neuro: Awake, alert, oriented. Cranial nerves II through XII unremarkable. Cerebellum unremarkable. Motor and sensory unremarkable throughout. Exam nonfocal. Diagnostics: [] Therapeutics: [] Impression: []Viral gastroenteritis Plan: []Discharged home Work note for the next 48 hours Zofran ODT Follow-up with your primary care provider Return to the emergency room as directed and discussed Definitive disposition and diagnosis as appropriate pending reevaluation and review of above. Onset: Sudden Duration: Day(s): (1) Location: Reports: Abdomen Quality: Reports: Ache Severity: Mild Improves with: Reports: None Worsens with: Reports: None abdominal Pain Score (Numeric/FACES): 6 - Related Data Allergies Allergy/AdvReac Type Severity Reaction Status Date / Time No Known Allergies Allergy Verified 09/01/17 19:53 Home Meds: Home Meds Ondansetron [Zofran ODT] 4 mg PO Q6H PRN #12 tab.dis 09/01/17 [Rx] Past Medical History - Past Health History Medical/Surgical History: Denies Medical/Surgical History Cardiovascular History: Reports: None Respiratory History: Reports: None Gastrointestinal History: Reports: None Genitourinary History: Reports: None Musculoskeletal History: Reports: None Neurological History: Reports: None Psychiatric History: Reports: None Endocrine/Metabolic History: Reports: None Hematologic History: Reports: None Oncologic (Cancer) History: Reports: None Dermatologic History: Reports: None - Infectious Disease History Infectious Disease History: Reports: Chicken Pox - Past Surgical History HEENT Surgical History: Reports: Tonsillectomy Other HEENT Surgeries/Procedures: [place] teeth removal Respiratory Surgical History: Reports: None Male Surgical History: Reports: None Musculoskeletal Surgical History: Reports: Other (See Below) Other Musculoskeletal Surgeries/Procedures:: bilateral knee surgery for osgoodslaughters disease Social & Family History - Family History Family Medical History: Noncontributory - Tobacco Use Smoking Status *Q: Never Smoker Years of Tobacco use: 10 Packs/Tins Daily: 1 Used Tobacco, but Quit: No Second Hand Smoke Exposure: Yes - Caffeine Use Caffeine Use: Reports: Coffee, Energy Drinks, Soda Caffeine Use Comment: 2 cups per day - Recreational Drug Use Recreational Drug Use: No ED ROS GENERAL - Review of Systems Review Of Systems: ROS reveals no pertinent complaints other than HPI. ED EXAM, GI/ABD - Physical Exam Exam: See Below (see dictation) Course - Vital Signs Last Recorded V/S: Last Vital Signs Temp 37.1 C 09/01/17 19:54 Pulse 97 09/01/17 19:54 Resp 18 09/01/17 19:54 BP 136/71 09/01/17 19:54 Pulse Ox 96 09/01/17 19:54 Departure - Departure Time of Disposition: 20:47 Disposition: Home, Self-Care 01 Condition: Good Clinical Impression: Gastroenteritis - Discharge Information Prescriptions: Ondansetron [Zofran ODT] 4 mg PO Q6H PRN #12 tab.dis PRN Reason: Nausea/Vomiting Instructions: Viral Gastroenteritis, Adult, [id number] Referrals: PCP,None [Primary Care Provider] - Additional Instructions: The following information is given to patients seen in the emergency department who are being discharged to home. This information is to outline your options for follow-up care. We provide all patients seen in our emergency department with a follow-up referral. The need for follow-up, as well as the timing and circumstances, are variable depending upon the specifics of your emergency department visit. If you don't have a primary care physician on staff, we will provide you with a referral. We always advise you to contact your personal physician following an emergency department visit to inform them of the circumstance of the visit and for follow-up with them and/or the need for any referrals to a consulting specialist. The emergency department will also refer you to a specialist when appropriate. This referral assures that you have the opportunity for followup care with a specialist. All of these measure are taken in an effort to provide you with optimal care, which includes your followup. Under all circumstances we always encourage you to contact your private physician who remains a resource for coordinating your care. When calling for followup care, please make the office aware that this follow-up is from your recent emergency room visit. If for any reason you are refused follow-up, please contact the [facility] emergency department at and asked to speak to the emergency department charge nurse. A work note has been issued for 48 hours Erick for nausea Continue with Tylenol and ibuprofen Turned to the emergency room as needed and discussed
== END 2017-09-01 21:05 | disposition home or self-care (01) ==
LOC: MW.ED 19:09
DX: A08.4 Viral intestinal infection, unspecified (principal)
CPT/HCPCS: 99283